=== PATIENT | male | born 1970 | race Two or more races ===

== ENCOUNTER 2016-05-23 02:25 | Inpatient (IN) | payer MEDICAID ==
[2016-05-23] VITALS (20 sets, daily range): BP systolic 11–145; BP diastolic 59–79
[~2016-05-23] VITALS: Ht 165.1 cm; Wt 74.8 kg
[~2016-05-23 02:25] MED LIST: NKM
[2016-05-23] MEDS ORDERED: Haloperidol 5mg/ml Inj ONE (02:45)
[2016-05-23] MEDS ORDERED: LORazepam Inj 2mg/ml 1ml ONE (02:45)
[2016-05-23] MEDS ORDERED: DiphenhydrAMINE 50mg/ml Inj IVP ONE (03:00)
[2016-05-23] MEDS ORDERED: LORazepam Inj 2mg/ml 1ml IM ONE (03:00)
[2016-05-23] MEDS ORDERED: Haloperidol 5mg/ml Inj IM ONE (03:00)
[2016-05-23 03:09] LABS: KETONES,URINE 2+ (NEGATIVE); LEUKOCYTE ESTERASE ,URINE 1+ (NEGATIVE); NITRITE,URINE POSITIVE (NEGATIVE); PH,URINE 5 (4.5-8.0); PROTEIN,URINE 3+ (NEGATIVE); UROBILINOGEN,URINE 4 MG/DL (0.0-1.0)
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
[2016-05-23 03:22] LABS: BASOPHILS % (AUTO) 1.5 % (0.0-2.0); EOSINOPHILS % (AUTO) 0.7 % (0.0-3.0); LYMPHOCYTES % (AUTO) 14.5 % (20.0-45.0); MEAN CORPUSCULAR HEMOGLOBIN 30.1 PG (27.0-31.0); MEAN CORPUSCULAR HGB CONC 32.9 G/DL (32.0-36.0); MEAN CORPUSCULAR VOLUME 91 FL (80-99); MEAN PLATELET VOLUME 7.9 FL (6.5-10.1); MONOCYTES % (AUTO) 10.2 % (1.0-10.0); NEUTROPHILS % (AUTO) 73.1 % (45.0-75.0); PLATELET COUNT 181 K/UL (150-450); RED BLOOD COUNT 4.71 M/UL (4.70-6.10); RED CELL DISTRIBUTION WIDTH 12.3 % (11.6-14.8); WHITE BLOOD COUNT 7.1 K/UL (4.8-10.8)
[2016-05-23 03:27] LABS: APPEARANCE,URINE SLIGHTLY CLOUDY
[2016-05-23 03:29] LABS: BACTERIA,URINE FEW /HPF; ICTOTEST NEGATIVE; SQUAMOUS EPITHELIAL CELL,UR FEW /LPF (NONE/OCC)
[2016-05-23 03:37] LABS: ACETAMINOPHEN < 10 ug/mL (10-30); ALANINE AMINOTRANSFERASE 60 U/L (3-41); ALBUMIN/GLOBULIN RATIO 1.3 (1.0-2.7); ALCOHOL < 10 mg/dL; ANION GAP 22 (5-15); ASPARTATE AMINO TRANSFERASE 120 U/L (5-40); CALCIUM 9.1 mg/dL (8.6-10.2); CARBON DIOXIDE 20 mEQ/L (20-30); CHLORIDE 97 mEQ/L (98-107); CREATININE 1.1 mg/dL (0.7-1.2); GLOMERULAR FILTRATION RATE > 60 mL/min (>60); HEMOLYSIS 8; POTASSIUM 3.7 mEQ/L (3.4-4.9); SODIUM 139 mEQ/L (135-145); TOTAL PROTEIN 7.4 g/dL (6.6-8.7)
[2016-05-23 06:54] LABS: BILIRUBIN,DIRECT 0.4 mg/dL (0.1-0.3)
[2016-05-23 08:10] LABS: ANION GAP 15 (5-15); CARBON DIOXIDE 22 mEQ/L (20-30); CHLORIDE 104 mEQ/L (98-107); CREATININE 0.8 mg/dL (0.7-1.2); GLOMERULAR FILTRATION RATE > 60 mL/min (>60); HEMOLYSIS 30; SODIUM 141 mEQ/L (135-145)
--- NOTE | 2016-05-23 08:55 | Diagnostic Imaging Report ---
Clinical Indication: TRAUMA Technique: No oral contrast utilized, per emergency room physician request IV administration nonionic contrast. Venous phase spiral acquisition obtained through the abdomen and pelvis. Multiplanar reconstructions were generated. Total dose length product 1000 mGycm. CTDIvol(s) 18 mGy Comparison: None Findings: There is considerable contusion of the skin and subcutaneous fat of the left upper quadrant anteriorly and to lesser extent of the right upper quadrant. There is no evidence of underlying bony injury. The liver, spleen, adrenals, pancreas are unremarkable. The kidneys demonstrate bilateral small, under 2 mm, calyceal calculi. No focal parenchymal abnormality. No hydronephrosis or hydroureter. The bladder is empty, contains a Dugan catheter. No pelvic mass or adenopathy. There is mild edema of the fat of the mesenteric root. The appendix is normal. No evidence of diverticulosis or diverticulitis. Considerable small bowel gas is demonstrated, but no right gaseous distention of large or small bowel is evident. Distal esophagus, stomach, duodenum are unremarkable. The included lung bases are clear except for minimal posterior dependent atelectatic changes Impression: Evidence of abdominal wall cutaneous and subcutaneous soft tissue contusion No evidence of solid organ injury Nonobstructive bilateral renal calculi Empty bladder, containing Dugan catheter Nonspecific mild edema of the fat of the mesenteric root This agrees with the preliminary interpretation provided overnight by [facility] teleradiology service. The CT scanner at [facility] is accredited by the [employer] and the scans are performed using protocols designed to limit radiation exposure to as low as reasonably achievable to attain images of sufficient resolution adequate for diagnostic evaluation.
--- NOTE | 2016-05-23 11:18 | Diagnostic Imaging Report ---
Indication: PAIN, altered mental status Technique: Continuous helical CT scanning of the head was performed without intravenous contrast material. Axial and coronal 5 mm sections were generated. Radiation dose was minimized using automated exposure control Dose: Total Dose Length Product - DLP [address] Dose Index - CTDIvol(s) 70.38 mGy. Comparison: None Findings: The ventricular system is normal in size and configuration. There is no shift of midline structures. No abnormal extra-axial fluid collections are noted. There is no evidence of intracerebral bleeding. No other abnormal high or low density areas are noted within the brain. There is minimal right mastoid disease. There is minimal ethmoid mucosal disease Impression: Normal CT scan of the head without contrast material. Incidental finding of sphenoid sinus and right mastoid disease The CT scanner at [facility] is accredited by the [employer] and the scans are performed using protocols designed to limit radiation exposure to as low as reasonably achievable to attain images of sufficient resolution adequate for diagnostic evaluation.
[2016-05-23 21:53] LABS: ANION GAP 14 (5-15); CARBON DIOXIDE 20 mEQ/L (20-30); CHLORIDE 105 mEQ/L (98-107); CREATININE 0.5 mg/dL (0.7-1.2); GLOMERULAR FILTRATION RATE > 60 mL/min (>60); HEMOLYSIS 8; POTASSIUM 3.2 mEQ/L (3.4-4.9); SODIUM 139 mEQ/L (135-145)
[2016-05-24 00:02] VITALS: BP 121/88
[2016-05-24 04:09] VITALS: BP 128/66
[2016-05-24] MEDS ORDERED: LORazepam Inj 2mg/ml 1ml IV PRN (06:00)
[2016-05-24] MEDS ORDERED: Mylanta II UD 30ml ORAL PRN (06:00)
[2016-05-24] MEDS ORDERED: Zolpidem 5mg tab ORAL PRN (06:00)
[2016-05-24] MEDS ORDERED: chlordiazePOXIDE 25mg Cap ORAL PRN (06:00)
[2016-05-24] MEDS ORDERED: Miralax 17gm pkt ORAL PRN (06:00)
[2016-05-24] MEDS ORDERED: Morphine Sulfate 2mg/ml Inj IVP PRN (06:00)
[2016-05-24 08:00] VITALS: BP 119/71
[2016-05-24] MEDS ORDERED: Thiamine HCl 100 MG, Folic Acid 1 MG, Magnesium Sulfate 2,000 MG, Multivitamin - 12 Inj... IV SCH ×5 (08:00)
[2016-05-24] MEDS: Heparin 5000 units/ml inj SUBQ SCH ×2 (08:58→21:19)
--- NOTE | 2016-05-24 11:55 | History & Physical ---
History and Physical History & Physicial Dictated for Int Med-Dr Novak no. [id number]. NILA KENDRICK May 24, 2016 11:55
[2016-05-24 12:00] VITALS: BP 108/64
[2016-05-24 16:00] VITALS: BP 124/82
[2016-05-24] MEDS: NS w/KCl 20mEq 1,000 ML IV SCH (19:33)
[2016-05-24 20:00] VITALS: BP 105/66
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
[2016-05-25] VITALS: BP 133/76
[2016-05-25] MEDS: NS w/KCl 20mEq 1,000 ML IV SCH ×3 (02:37→21:35)
[2016-05-25 04:00] VITALS: BP 128/74
[2016-05-25 07:47] LABS: BASOPHILS % (AUTO) 1.5 % (0.0-2.0); EOSINOPHILS % (AUTO) 2.4 % (0.0-3.0); LYMPHOCYTES % (AUTO) 22.8 % (20.0-45.0); MEAN CORPUSCULAR HEMOGLOBIN 30.3 PG (27.0-31.0); MEAN CORPUSCULAR HGB CONC 32.4 G/DL (32.0-36.0); MEAN CORPUSCULAR VOLUME 94 FL (80-99); MEAN PLATELET VOLUME 8.8 FL (6.5-10.1); MONOCYTES % (AUTO) 13.5 % (1.0-10.0); NEUTROPHILS % (AUTO) 59.8 % (45.0-75.0); PLATELET COUNT 143 K/UL (150-450); RED BLOOD COUNT 4.08 M/UL (4.70-6.10); RED CELL DISTRIBUTION WIDTH 13.2 % (11.6-14.8); WHITE BLOOD COUNT 5.8 K/UL (4.8-10.8)
[2016-05-25 08:00] VITALS: BP 125/73
[2016-05-25] MEDS ORDERED: Folic Acid 1 MG, Magnesium Sulfate 2,000 MG, Multivitamin - 12 Injection 10 ML in NS w/... IV SCH (08:00)
[2016-05-25 08:16] LABS: CKMB 2.7 ng/mL (< 6.7)
[2016-05-25 08:17] LABS: ALANINE AMINOTRANSFERASE 33 U/L (3-41); ALBUMIN/GLOBULIN RATIO 1.3 (1.0-2.7); ANION GAP 13 (5-15); ASPARTATE AMINO TRANSFERASE 39 U/L (5-40); CALCIUM 8.3 mg/dL (8.6-10.2); CARBON DIOXIDE 25 mEQ/L (20-30); CHLORIDE 103 mEQ/L (98-107); CREATININE 0.6 mg/dL (0.7-1.2); GLOMERULAR FILTRATION RATE > 60 mL/min (>60); HEMOLYSIS 6; POTASSIUM 4.1 mEQ/L (3.4-4.9); SODIUM 141 mEQ/L (135-145); TOTAL PROTEIN 6.1 g/dL (6.6-8.7)
[2016-05-25] MEDS: Heparin 5000 units/ml inj SUBQ SCH ×2 (08:38→20:33)
[2016-05-25] MEDS ORDERED: Thiamine HCl 100 MG in D5W 50 ML IV SCH (09:00)
[2016-05-25 12:00] VITALS: BP 122/77
[2016-05-25 16:00] VITALS: BP 108/57
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
[2016-05-25 20:00] VITALS: BP 107/60
[2016-05-26] VITALS: BP 117/76
[2016-05-26] MEDS ORDERED: Morphine Sulfate 2mg/ml Inj IVP PRN (02:00)
[2016-05-26] MEDS ORDERED: LORazepam Inj 2mg/ml 1ml IV PRN (02:00)
[2016-05-26] MEDS: NS w/KCl 20mEq 1,000 ML IV SCH ×2 (02:29→15:12)
[2016-05-26 04:00] VITALS: BP 118/72
[2016-05-26] MEDS ORDERED: chlordiazePOXIDE 25mg Cap ORAL PRN (06:00)
[2016-05-26] MEDS ORDERED: Miralax 17gm pkt ORAL PRN (06:00)
[2016-05-26] MEDS ORDERED: Zolpidem 5mg tab ORAL PRN (06:00)
[2016-05-26] MEDS ORDERED: Mylanta II UD 30ml ORAL PRN (06:00)
[2016-05-26 08:32] VITALS: BP 107/71
[2016-05-26] MEDS: Folic Acid 1 MG, Magnesium Sulfate 2,000 MG, Multivitamin - 12 Injection 10 ML in NS w/... IV SCH (08:56)
[2016-05-26] MEDS: Heparin 5000 units/ml inj SUBQ SCH ×2 (09:00→21:00)
[2016-05-26] MEDS: Thiamine HCl 100 MG in D5W 50 ML IV SCH (10:02)
[2016-05-26 10:59] LABS: BASOPHILS % (AUTO) 1.5 % (0.0-2.0); EOSINOPHILS % (AUTO) 2.1 % (0.0-3.0); LYMPHOCYTES % (AUTO) 25.7 % (20.0-45.0); MEAN CORPUSCULAR HEMOGLOBIN 30.1 PG (27.0-31.0); MEAN CORPUSCULAR HGB CONC 32.1 G/DL (32.0-36.0); MEAN CORPUSCULAR VOLUME 94 FL (80-99); MEAN PLATELET VOLUME 8.2 FL (6.5-10.1); MONOCYTES % (AUTO) 11.6 % (1.0-10.0); NEUTROPHILS % (AUTO) 59.1 % (45.0-75.0); PLATELET COUNT 152 K/UL (150-450); RED BLOOD COUNT 4.37 M/UL (4.70-6.10); RED CELL DISTRIBUTION WIDTH 13.3 % (11.6-14.8); WHITE BLOOD COUNT 4.6 K/UL (4.8-10.8)
[2016-05-26 11:12] LABS: ANION GAP 11 (5-15); CALCIUM 8.6 mg/dL (8.6-10.2); CARBON DIOXIDE 26 mEQ/L (20-30); CHLORIDE 101 mEQ/L (98-107); CREATININE 0.6 mg/dL (0.7-1.2); GLOMERULAR FILTRATION RATE > 60 mL/min (>60); HEMOLYSIS 7; POTASSIUM 4.3 mEQ/L (3.4-4.9); SODIUM 138 mEQ/L (135-145)
[2016-05-26 11:22] LABS: CKMB < 1.5 ng/mL (< 6.7)
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
[2016-05-26 11:35] VITALS: BP 121/75
[2016-05-26] MEDS ORDERED: NS 275ml ONE (15:53)
[2016-05-26] MEDS ORDERED: Tubing IV Secondary IV ONE (15:53)
[2016-05-26 16:00] VITALS: BP 117/76
[2016-05-26 20:00] VITALS: BP 115/75
[2016-05-27] VITALS (7 sets, daily range): BP systolic 110–135; BP diastolic 62–80
[2016-05-27] MEDS: NS w/KCl 20mEq 1,000 ML IV SCH ×3 (05:35→23:45)
[2016-05-27 07:32] LABS: BASOPHILS % (AUTO) 2.4 % (0.0-2.0); EOSINOPHILS % (AUTO) 2.7 % (0.0-3.0); LYMPHOCYTES % (AUTO) 32.2 % (20.0-45.0); MEAN CORPUSCULAR HEMOGLOBIN 29.9 PG (27.0-31.0); MEAN CORPUSCULAR HGB CONC 31.7 G/DL (32.0-36.0); MEAN CORPUSCULAR VOLUME 94 FL (80-99); MEAN PLATELET VOLUME 8.7 FL (6.5-10.1); MONOCYTES % (AUTO) 9.8 % (1.0-10.0); NEUTROPHILS % (AUTO) 52.9 % (45.0-75.0); PLATELET COUNT 186 K/UL (150-450); RED BLOOD COUNT 4.51 M/UL (4.70-6.10); WHITE BLOOD COUNT 4.7 K/UL (4.8-10.8)
[2016-05-27 08:15] LABS: ANION GAP 13 (5-15); CALCIUM 8.9 mg/dL (8.6-10.2); CARBON DIOXIDE 25 mEQ/L (20-30); CHLORIDE 102 mEQ/L (98-107); CREATININE 0.6 mg/dL (0.7-1.2); GLOMERULAR FILTRATION RATE > 60 mL/min (>60); HEMOLYSIS 5; POTASSIUM 4.5 mEQ/L (3.4-4.9); SODIUM 140 mEQ/L (135-145)
[2016-05-27] MEDS: Thiamine HCl 100 MG in D5W 50 ML IV SCH (09:00)
[2016-05-27] MEDS: Folic Acid 1 MG, Magnesium Sulfate 2,000 MG, Multivitamin - 12 Injection 10 ML in NS w/... IV SCH (09:30)
[2016-05-27] MEDS: Heparin 5000 units/ml inj SUBQ SCH ×2 (10:39→20:27)
--- NOTE | 2016-05-27 19:57 | Internal Med Progress Note ---
Subjective Date of Service: May 27, 2016 Physician Name Kem Kendrick Attending Physician Juliano Novak MD Current Medications Medications (Trade) Dose Ordered Sig/Fredy Route PRN Reason Start Time Stop Time Status Last Admin Dose Admin Acetaminophen (Tylenol) 650 mg Q4H PRN ORAL fever 05/26/16 02:00 06/25/16 01:59 Al Hydroxide/Mg Hydroxide (Mylanta II) 30 ml Q6H PRN ORAL dyspepsia 05/26/16 06:00 06/25/16 05:59 Chlordiazepoxide (Librium) 25 mg Q6H PRN ORAL Agitation 05/26/16 06:00 06/02/16 05:59 Dextrose (Dextrose 50%) STAT PRN IV Hypoglycemia 05/26/16 06:00 06/25/16 05:59 Folic Acid 1 mg/ Magnesium Sulfate 2000 mg/ Multivitamins 10 ml/Sodium Chloride 1,014.2 ml @ 124.876 mls/hr Q24H IV 05/26/16 09:00 06/25/16 08:59 05/26/16 08:56 Heparin Sodium (Porcine) (Heparin 5000 units/ml) 5,000 units EVERY 12 HOURS SUBQ 05/26/16 09:00 06/25/16 08:59 05/27/16 10:39 Levofloxacin 100 ml @ 100 mls/hr Q24H IVPB 05/26/16 13:00 06/02/16 12:59 05/27/16 10:37 Lorazepam (Ativan 2mg/ml 1ml) 2 mg Q1H PRN IV seizures 05/26/16 02:00 06/02/16 01:59 Morphine Sulfate (Morphine Sulfate) 1 mg Q4H PRN IVP For Pain 05/26/16 02:00 06/02/16 01:59 Ondansetron HCl (Zofran) 4 mg Q6H PRN IVP Nausea & Vomiting 05/26/16 06:00 06/25/16 05:59 Polyethylene Glycol (Miralax) 17 gm HSPRN PRN ORAL Constipation 05/26/16 06:00 06/25/16 05:59 Sodium Chloride 1,000 ml @ 75 mls/hr [id number] IV 05/26/16 01:30 06/25/16 01:29 05/27/16 17:23 Thiamine HCl/ Dextrose (Vitamin B1/D5W 50ml) 51 ml @ 100 mls/hr DAILY IV 05/26/16 09:00 06/25/16 08:59 05/26/16 10:02 Zolpidem Tartrate (Ambien) 5 mg HSPRN PRN ORAL Insomnia 05/26/16 06:00 06/25/16 05:59 Allergies: Coded Allergies: No Known Allergies (Unverified , 05/23/16) ROS Limited/Unobtainable: No Constitutional: Reports: no symptoms HEENT: Reports: no symptoms Cardiovascular: Reports: no symptoms Respiratory: Reports: no symptoms Gastrointestinal/Abdominal: Reports: no symptoms Genitourinary: Reports: no symptoms Neurologic/Psychiatric: Reports: no symptoms Subjective 45 YO M with altered mental status and rhabdomyolysis.. Cover for Int Med-Dr Novak. C/O abdominal wall and left femur pain Objective Last Vital Signs Date Time Temp Pulse Resp B/P Pulse Ox O2 Delivery O2 Flow Rate FiO2 05/27/16 16:00 97.6 68 18 135/62 98 Room Air Laboratory Tests Test 05/27/16 06:00 White Blood Count 4.7 K/UL (4.8-10.8) L Red Blood Count 4.51 M/UL (4.70-6.10) L Hemoglobin 13.5 G/DL (14.2-18.0) L Hematocrit 42.6 % (42.0-52.0) Mean Corpuscular Volume 94 FL (80-99) Mean Corpuscular Hemoglobin 29.9 PG (27.0-31.0) Mean Corpuscular Hemoglobin Concent 31.7 G/DL (32.0-36.0) L Red Cell Distribution Width 13.0 % (11.6-14.8) Platelet Count 186 K/UL (150-450) Mean Platelet Volume 8.7 FL (6.5-10.1) Neutrophils (%) (Auto) 52.9 % (45.0-75.0) Lymphocytes (%) (Auto) 32.2 % (20.0-45.0) Monocytes (%) (Auto) 9.8 % (1.0-10.0) Eosinophils (%) (Auto) 2.7 % (0.0-3.0) Basophils (%) (Auto) 2.4 % (0.0-2.0) H Sodium Level 140 mEQ/L (135-145) Potassium Level 4.5 mEQ/L (3.4-4.9) Chloride Level 102 mEQ/L (98-107) Carbon Dioxide Level 25 mEQ/L (20-30) Anion Gap 13 (5-15) Blood Urea Nitrogen 8 mg/dL (7-23) Creatinine 0.6 mg/dL (0.7-1.2) L Estimat Glomerular Filtration Rate > 60 mL/min (>60) Glucose Level 84 mg/dL (74-106) Calcium Level 8.9 mg/dL (8.6-10.2) Microbiology Date/Time Source Procedure Growth Status 05/24/16 21:41 Indwelling Cath Urine Culture - Final Mixed Gram Positive Organism Complete Intake and Output 05/26/16 05/27/16 19:00 07:00 Intake Total 1269.256 ml Output Total 950 ml 2325 ml Balance 319.256 ml -2325 ml Intake Oral 520 ml IV Total 749.256 ml Output Urine Total 950 ml 1425 ml Other 900 ml Objective General Appearance: WD/WN, no apparent distress, alert EENT: PERRL/EOMI, normal ENT inspection Neck: non-tender, normal alignment, supple, normal inspection Cardiovascular: normal peripheral pulses, normal rate, regular rhythm, no gallop/murmur, no JVD Respiratory/Chest: chest wall non-tender, lungs clear, normal breath sounds, no respiratory distress, no accessory muscle use Abdomen: normal bowel sounds, non tender, soft, no organomegaly, no mass, other - abdominal wall pain Extremities: normal range of motion, other - tender left thigh 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 (4) Contusion of abdominal wall, initial encounter Assessment & Plan: Due to francois bag fired by police. (5) Rhabdomyolysis Assessment & Plan: Cont IV fluid. Follow CPK (6) Amphetamine abuse (7) UTI (urinary tract infection) Assessment & Plan: await urine culture. Cont IV levaquin for now Status: progressing Assessment/Plan Discharge planning-Homeless KEM KENDRICK May 27, 2016 19:57
[2016-05-28 03:57] VITALS: BP 108/65
[2016-05-28 07:11] LABS: BASOPHILS % (AUTO) 2.3 % (0.0-2.0); EOSINOPHILS % (AUTO) 2.6 % (0.0-3.0); LYMPHOCYTES % (AUTO) 33.4 % (20.0-45.0); MEAN CORPUSCULAR HEMOGLOBIN 30.4 PG (27.0-31.0); MEAN CORPUSCULAR HGB CONC 31.9 G/DL (32.0-36.0); MEAN CORPUSCULAR VOLUME 95 FL (80-99); MEAN PLATELET VOLUME 8.9 FL (6.5-10.1); MONOCYTES % (AUTO) 9.6 % (1.0-10.0); NEUTROPHILS % (AUTO) 52.1 % (45.0-75.0); PLATELET COUNT 177 K/UL (150-450); RED BLOOD COUNT 4.23 M/UL (4.70-6.10); RED CELL DISTRIBUTION WIDTH 13.1 % (11.6-14.8); WHITE BLOOD COUNT 4.5 K/UL (4.8-10.8)
[2016-05-28 07:21] LABS: ANION GAP 12 (5-15); CALCIUM 8.9 mg/dL (8.6-10.2); CARBON DIOXIDE 26 mEQ/L (20-30); CHLORIDE 103 mEQ/L (98-107); CREATININE 0.6 mg/dL (0.7-1.2); GLOMERULAR FILTRATION RATE > 60 mL/min (>60); HEMOLYSIS 3; POTASSIUM 4.4 mEQ/L (3.4-4.9); SODIUM 141 mEQ/L (135-145)
[2016-05-28 08:00] VITALS: BP_SYST 105; BP_SYST 108; BP_DIAS 66; BP_DIAS 67
[2016-05-28] MEDS: Folic Acid 1 MG, Magnesium Sulfate 2,000 MG, Multivitamin - 12 Injection 10 ML in NS w/... IV SCH (10:29)
[2016-05-28 12:00] VITALS: BP 103/63
[2016-05-28 15:09] VITALS: BP 113/73
--- NOTE | 2016-05-28 17:19 | Physician Query ---
PLEASE COMPLETE DOCUMENT BEFORE SIGNING Dear Dr. Pimentel Date: 05/28/2016 Family Resource Coordinator/CDS Name: _Alverto Herrera MD____ Family Resource Coordinator / CDS Phone #__[phone] _ Exercise your independent professional judgment when responding to query. Question asked do not imply a particular answer is desired/expected. Clinical Documentation States: "Altered Mental Status" documented in Dr. Casiano's Progress Notes Clinical Findings Show: Rhabdomyolysis, Amphetamine abuse, UTI as per Dr. Casiano's Progress Notes Please indicate the nature and chronicity of the condition below: X] Metabolic Encephalopathy [] Toxic Encephalopathy [] Toxic - Metabolic Encephalopathy [] Progressive Encephalopathy [] Encephalopathy, Other [] Other: [] Not Applicable Severity [X] Acute [] Chronic [] Acute on Chronic [] Unable to determine Condition Present on Admission: [X] Yes [] No []Clinically Undeterminable Please also document in your Progress Notes and/or Discharge Summary and indicate if the condition was present on admission. Kem Casiano MD Date & Time [facility]
[2016-05-28] MEDS: Thiamine HCl 100 MG in D5W 50 ML IV SCH (18:50)
[2016-05-28 19:00] VITALS: BP 111/72
--- NOTE | 2016-05-28 19:13 | Internal Med Progress Note ---
Subjective Date of Service: May 28, 2016 Physician Name Kem Kendrick Attending Physician Juliano Novak MD Current Medications Medications (Trade) Dose Ordered Sig/Fredy Route PRN Reason Start Time Stop Time Status Last Admin Dose Admin Acetaminophen (Tylenol) 650 mg Q4H PRN ORAL fever 05/26/16 02:00 06/25/16 01:59 Al Hydroxide/Mg Hydroxide (Mylanta II) 30 ml Q6H PRN ORAL dyspepsia 05/26/16 06:00 06/25/16 05:59 Chlordiazepoxide (Librium) 25 mg Q6H PRN ORAL Agitation 05/26/16 06:00 06/02/16 05:59 Dextrose (Dextrose 50%) STAT PRN IV Hypoglycemia 05/26/16 06:00 06/25/16 05:59 Folic Acid 1 mg/ Magnesium Sulfate 2000 mg/ Multivitamins 10 ml/Sodium Chloride 1,014.2 ml @ 124.876 mls/hr Q24H IV 05/26/16 09:00 06/25/16 08:59 05/28/16 10:29 Heparin Sodium (Porcine) (Heparin 5000 units/ml) 5,000 units EVERY 12 HOURS SUBQ 05/26/16 09:00 06/25/16 08:59 05/27/16 10:39 Levofloxacin 100 ml @ 100 mls/hr Q24H IVPB 05/26/16 13:00 06/02/16 12:59 05/27/16 10:37 Lorazepam (Ativan 2mg/ml 1ml) 2 mg Q1H PRN IV seizures 05/26/16 02:00 06/02/16 01:59 Morphine Sulfate (Morphine Sulfate) 1 mg Q4H PRN IVP For Pain 05/26/16 02:00 06/02/16 01:59 Ondansetron HCl (Zofran) 4 mg Q6H PRN IVP Nausea & Vomiting 05/26/16 06:00 06/25/16 05:59 Polyethylene Glycol (Miralax) 17 gm HSPRN PRN ORAL Constipation 05/26/16 06:00 06/25/16 05:59 Sodium Chloride 1,000 ml @ 75 mls/hr [id number] IV 05/26/16 01:30 06/25/16 01:29 05/27/16 23:45 Thiamine HCl/ Dextrose (Vitamin B1/D5W 50ml) 51 ml @ 100 mls/hr DAILY IV 05/26/16 09:00 06/25/16 08:59 05/26/16 10:02 Zolpidem Tartrate (Ambien) 5 mg HSPRN PRN ORAL Insomnia 05/26/16 06:00 06/25/16 05:59 Allergies: Coded Allergies: No Known Allergies (Unverified , 05/23/16) ROS Limited/Unobtainable: No Constitutional: Reports: no symptoms HEENT: Reports: no symptoms Cardiovascular: Reports: no symptoms Respiratory: Reports: no symptoms Gastrointestinal/Abdominal: Reports: abdominal pain Genitourinary: Reports: no symptoms Neurologic/Psychiatric: Reports: no symptoms Subjective 45 YO M with altered mental status and rhabdomyolysis.. Cover for Int Med-Dr Novak. C/O abdominal wall and left femur pain Objective Last Vital Signs Date Time Temp Pulse Resp B/P Pulse Ox O2 Delivery O2 Flow Rate FiO2 05/28/16 15:09 98.0 67 18 113/73 97 Room Air Laboratory Tests Test 05/28/16 06:15 White Blood Count 4.5 K/UL (4.8-10.8) L Red Blood Count 4.23 M/UL (4.70-6.10) L Hemoglobin 12.8 G/DL (14.2-18.0) L Hematocrit 40.2 % (42.0-52.0) L Mean Corpuscular Volume 95 FL (80-99) Mean Corpuscular Hemoglobin 30.4 PG (27.0-31.0) Mean Corpuscular Hemoglobin Concent 31.9 G/DL (32.0-36.0) L Red Cell Distribution Width 13.1 % (11.6-14.8) Platelet Count 177 K/UL (150-450) Mean Platelet Volume 8.9 FL (6.5-10.1) Neutrophils (%) (Auto) 52.1 % (45.0-75.0) Lymphocytes (%) (Auto) 33.4 % (20.0-45.0) Monocytes (%) (Auto) 9.6 % (1.0-10.0) Eosinophils (%) (Auto) 2.6 % (0.0-3.0) Basophils (%) (Auto) 2.3 % (0.0-2.0) H Sodium Level 141 mEQ/L (135-145) Potassium Level 4.4 mEQ/L (3.4-4.9) Chloride Level 103 mEQ/L (98-107) Carbon Dioxide Level 26 mEQ/L (20-30) Anion Gap 12 (5-15) Blood Urea Nitrogen 11 mg/dL (7-23) Creatinine 0.6 mg/dL (0.7-1.2) L Estimat Glomerular Filtration Rate > 60 mL/min (>60) Glucose Level 88 mg/dL (74-106) Calcium Level 8.9 mg/dL (8.6-10.2) Total Creatine Kinase 128 U/L (38-174) Intake and Output 05/27/16 05/28/16 19:00 07:00 Intake Total 900 ml 1185 ml Output Total 1545 ml 600 ml Balance -645 ml 585 ml Intake Oral 900 ml 660 ml IV Total 525 ml Output Urine Total 745 ml 600 ml Other 800 ml # Voids 6 Objective General Appearance: WD/WN, no apparent distress, alert EENT: PERRL/EOMI, normal ENT inspection Neck: non-tender, normal alignment, supple, normal inspection Cardiovascular: normal peripheral pulses, normal rate, regular rhythm, no gallop/murmur, no JVD Respiratory/Chest: chest wall non-tender, lungs clear, normal breath sounds, no respiratory distress, no accessory muscle use Abdomen: normal bowel sounds, non tender, soft, no organomegaly, no mass, other - abdominal wall pain Extremities: normal range of motion, other - tender left thigh 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 (4) Contusion of abdominal wall, initial encounter Assessment & Plan: Due to francois bag fired by police. (5) Rhabdomyolysis Assessment & Plan: Cont IV fluid. Follow CPK (6) Amphetamine abuse (7) UTI (urinary tract infection) Assessment & Plan: await urine culture. Cont IV levaquin for now Status: progressing Assessment/Plan Discharge planning-D/C in am 05/29/16. Pt has appointment for housing. KEM KENDRICK May 28, 2016 19:13
[2016-05-28] MEDS: NS w/KCl 20mEq 1,000 ML IV SCH (19:40)
[2016-05-28] MEDS: Heparin 5000 units/ml inj SUBQ SCH ×2 (19:47→22:37)
[2016-05-29] VITALS: BP 125/59
[2016-05-29 04:00] VITALS: BP 124/78
[2016-05-29 07:32] LABS: BASOPHILS % (AUTO) 1.7 % (0.0-2.0); EOSINOPHILS % (AUTO) 2.9 % (0.0-3.0); LYMPHOCYTES % (AUTO) 30.4 % (20.0-45.0); MEAN CORPUSCULAR HEMOGLOBIN 30.6 PG (27.0-31.0); MEAN CORPUSCULAR HGB CONC 33.3 G/DL (32.0-36.0); MEAN CORPUSCULAR VOLUME 92 FL (80-99); MEAN PLATELET VOLUME 8.5 FL (6.5-10.1); MONOCYTES % (AUTO) 10.3 % (1.0-10.0); NEUTROPHILS % (AUTO) 54.7 % (45.0-75.0); PLATELET COUNT 183 K/UL (150-450); RED BLOOD COUNT 4.27 M/UL (4.70-6.10); RED CELL DISTRIBUTION WIDTH 13.6 % (11.6-14.8); WHITE BLOOD COUNT 4.6 K/UL (4.8-10.8)
[2016-05-29 07:34] LABS: ANION GAP 15 (5-15); CARBON DIOXIDE 25 mEQ/L (20-30); CHLORIDE 101 mEQ/L (98-107); CREATININE 0.7 mg/dL (0.7-1.2); GLOMERULAR FILTRATION RATE > 60 mL/min (>60); HEMOLYSIS 5; POTASSIUM 4.3 mEQ/L (3.4-4.9); SODIUM 141 mEQ/L (135-145)
[2016-05-29] MEDS ORDERED: Tubing IV Secondary IV ONE (12:29)
--- NOTE | 2016-05-30 16:32 | Discharge Summary ---
Discharge Summary Hospital Course Date of Admission May 23, 2016 at 11:26 Date of Discharge May 29, 2016 at 12:30 Admitting Diagnosis rhabdomyolysis substance abuse chest contusion PABLO Hernandez is a 46 year old male who was admitted on May 23, 2016 at 11: 26 for Rhabdomyolysis Substance Abuse Chest Contusion Hospital Course [id number] Discharge Discharge Disposition Patient was discharged to home ( signed homeless form) Discharge Diagnoses: Ludy Pollack NP May 30, 2016 16:32
--- NOTE | 2016-05-31 10:28 | Discharge Summary 2 SIG ---
DATE OF ADMISSION: 05/23/2016 DATE OF DISCHARGE: 05/29/2016 BRIEF HOSPITAL COURSE: The patient is a 46-year-old male, who was brought to [place] emergency room by [employer] due to altered mental status. Apparently, he was trying to get into a business area and would not leave. The police was called in. He was uncooperative and received francois bag to his abdomen and was also tasered. On arrival to ED, he was aggressive, screaming, and became combative. Police officers responded. He received two more francois bag shots and tasers. He was subdued by a police liaison and was placed on restraints at ED. Tasers were removed by the ED physician. CT of the abdomen done showed edema in the subcutaneous tissue suggestive of contusion with no free air and no organ injury. Laboratories showed elevated creatine kinase. He was admitted to telemetry and was given IV hydration, banana bag, multivitamin, thiamine, and chlordiazepoxide for agitation. Social service was called in. Name, date of , was given. The patient's identity was then found. Urine toxicology was positive for amphetamine. He was also given IV Levaquin for urinary tract infection. Urine culture showed growth of mixed gram-positive organisms. He came in with multiple abrasions secondary to francois bag shots. Wound care was provided. He was eventually discharged home and signed homeless waiver as he refused referrals to [facility]. FINAL DIAGNOSES: 1. Acute toxic metabolic encephalopathy. 2. Amphetamine abuse. 3. Rhabdomyolysis. 4. Contusion of abdominal wall secondary to francois bag fired by police. 5. Homelessness. 6. Renal calculi . 7. Urinary tract infection. Kem Casiano M.D. I have been assigned to dictate discharge summary on this account and I was not involved in the patient's management. Ludy Pollack N.P. DR: Jossy JOB#: [id number] CC: [id number]
== END 2016-05-29 12:30 | disposition home or self-care (01) | DRG 384 ==
LOC: EMR 02:43 → EDBD 11:26 → 2E 11:26 → EDBEDREQ 11:34 → 4E 05-26 00:57
PROC: 0JC60ZZ Extirpation of Matter from Chest Subcutaneous Tissue and Fascia, Open Approach (ICD-10-PCS; principal; 2016-05-23)
DX: S21.149A Puncture wound with foreign body of unspecified front wall of thorax without penetration into thoracic cavity, initial encounter (principal); G92 Toxic encephalopathy; M62.82 Rhabdomyolysis; N39.0 Urinary tract infection, site not specified; E86.0 Dehydration; S30.1XXA Contusion of abdominal wall, initial encounter; F15.159 Other stimulant abuse with stimulant-induced psychotic disorder, unspecified; Y35.893A Legal intervention involving other specified means, suspect injured, initial encounter; Y92.414 Local residential or business street as the place of occurrence of the external cause; Y99.9 Unspecified external cause status; Z59.0 Homelessness; Z87.442 Personal history of urinary calculi
CPT/HCPCS: 36415; 70450; 74177; 80048; 80053; 80300; 80329; 81003; 82248; 82550; 82553; 82962; 85025; 87086